=== PATIENT | male | born 1930 | race Caucasian/White ===

== ENCOUNTER 2017-05-22 07:15 | Inpatient (IN) | payer MEDICAID, OTHER ==
--- NOTE | 2017-05-22 07:45 | CPEKG ---
Heart Rate: 92 RR Interval: 652 P-R Interval: 156 QRSD Interval: 110 QT Interval: 396 QTC Interval: 490 P Alanson: 72 QRS Alanson: 78 T Wave Alanson: -27 EKG Severity - ABNORMAL ECG - EKG Impression: SINUS RHYTHM EKG Impression: ATRIAL PREMATURE COMPLEX EKG Impression: INCOMPLETE RIGHT BUNDLE BRANCH BLOCK EKG Impression: LOW VOLTAGE IN FRONTAL LEADS EKG Impression: NONSPECIFIC ST DEPRESSION, ANTERIOR LEADS Electronically Signed By: Sean Rutledge 22-May-2017 07:50:54
[2017-05-22] MEDS ORDERED: PIPERACILLIN/TAZO 4.5 GM/DEX 100 ML IV ONE (07:46)
--- NOTE | 2017-05-22 07:50 | EDPHY ---
H & P Stated Complaint: Left lower leg swelling erythema x 3 days, no trauma, SOB Time Seen by Provider: 05/22/17 07:37 HPI/ROS: CHIEF COMPLAINT: Left leg pain HISTORY OF PRESENT ILLNESS: Patient is an 86-year-old man with a history of recent stenting acrossed an aortic aneurysm to bilateral femoral arteries done by interventional radiology jonathan Cox. He also has a history of COPD and on Friday had skin cancer excision on his right wrist. His daughter is with him and states that ever since he was discharged from the hospital with his blood pressure medication last month he has had bilateral lower extremity edema. Yesterday the left leg became painful as well. Has a red is discharged to his kan and calf. Patient denies chest pain or shortness of breath. He denies abdominal pain. He denies headache or lightheadedness. He has not had a fever. Daughter notes that he did have an elevated troponin while he was in the hospital last month but elected not to have a catheterization. He denies trauma. He saturates in the mid 80s on 4 L at home. REVIEW OF SYSTEMS: Constitutional: denies: chills, fever, recent illness, recent injury EENTM: denies: blurred vision, double vision, nose congestion Respiratory: See HPI Cardiac: denies: chest pain, irregular heart rate, lightheadedness, palpitations Gastrointestinal/Abdominal: denies: abdominal pain, diarrhea, nausea, vomiting, blood streaked stools Genitourinary: denies: dysuria, frequency, hematuria, pain Musculoskeletal: See HPI Skin: See HPI Neurological: denies: headache, numbness, paresthesia, tingling, dizziness, weakness Hematologic/Lymphatic: denies: blood clots, easy bleeding, easy bruising Immunologic/allergic: denies: HIV/AIDS, transplant EXAM: GENERAL: Thin, moderate distress . HEAD: Atraumatic, normocephalic. EYES: Pupils equal round and reactive to light, extraocular movements intact, sclera anicteric, conjunctiva are normal. ENT: TMs normal, nares patent, oropharynx clear without exudates. Moist mucous membranes. NECK: Normal range of motion, supple without lymphadenopathy or JVD. LUNGS: Breath sounds clear to auscultation bilaterally and equal. No wheezes rales or rhonchi. HEART: Regular rate and rhythm without murmurs, rubs or gallops. ABDOMEN: Soft, nontender, normoactive bowel sounds. No guarding, no rebound. No masses appreciated. BACK: No CVA tenderness, no spinal tenderness, step-offs or deformities EXTREMITIES: Bilateral lower extremity edema, 2+ pitting, salmony red discoloration to left kan and calf region. Pulses thready bilaterally. NEUROLOGICAL: Cranial nerves II through XII grossly intact. Normal speech, normal gait. 5/5 strength, normal movement in all extremities, normal sensation PSYCH: Normal mood, normal affect. SKIN: Warm, dry, normal turgor, no visible rashes or lesions. Source: Patient, Family Exam Limitations: No limitations - Personal History Current Tetanus/Diphtheria Vaccine: Unsure Current Tetanus Diphtheria and Acellular Pertussis (TDAP): Unsure - Medical/Surgical History Hx Asthma: No Hx Chronic Respiratory Disease: Yes Hx Diabetes: No Hx Cardiac Disease: Yes Hx Renal Disease: No Hx Cirrhosis: No Hx Alcoholism: No Hx HIV/AIDS: No Hx Splenectomy or Spleen Trauma: No Other PMH: htn, BPH, aortic anneuy repair at [facility] 04/22, COPD - Family History Significant Family History: No pertinent family hx - Social History Smoking Status: Former smoker Alcohol Use: Sober Drug Use: None Constitutional: Initial Vital Signs Temperature (C) 36.9 C 05/22/17 07:20 Heart Rate 95 05/22/17 07:20 Respiratory Rate 18 05/22/17 07:20 Blood Pressure 138/106 H 05/22/17 07:20 O2 Sat (%) 88 L 05/22/17 07:20 O2 Delivery Mode Bi-Pap O2 (L/minute) 15 Allergies/Adverse Reactions: No Known Allergies Allergy (Unverified 05/22/17 07:26) Home Medications: Medication Instructions Recorded Aspirin [Aspirin 81mg (*)] 81 mg PO DAILY 05/22/17 Metoprolol Tartrate [Lopressor 25 25 mg PO BID 05/22/17 mg (*)] Multivitamins [Multivitamin (*)] 1 each PO DAILY 05/22/17 Tamsulosin HCl [Flomax 0.4 MG (*)] 0.4 mg PO HS 05/22/17 amLODIPine BESYLATE [Norvasc 5 mg 5 mg PO BID 05/22/17 (*)] Medical Decision Making - Diagnostics EKG Interpretation: An EKG obtained and was read and documented in trace view. Please see trace view for full reading and report. Sinus rhythm, incomplete right bundle Imaging: Discussed imaging studies w/ manager aviation Radiologist ED Course/Re-evaluation: The patient has septic shock based on an elevated lactate. Likely source is from his wound on his right wrist verses pneumonia versus lower extremity cellulitis. I have started Zosyn and fluid bolus. I will admit to the hospital service. I discussed the case with the [facility] and they agree that he is too ill for transfer currently. Differential Diagnosis: Partial list of the Differential diagnosis considered include but were not limited to; sepsis, pneumonia, cellulitis, venous stasis, ischemia and although unlikely based on the history and physical exam, I also considered aneurysm, acute coronary disease. Critical Care Time: Critical care time spent by me, Dr. Rutledge exclusive with this patient was 35 minutes, exclusive of the PA time exclusive of procedures. The organ system that was at risk was cardiovascular and I gave IV fluids, antibiotics, consultation and admission to prevent worsening of the patient's condition - Data Points Laboratory Results: Laboratory Results 05/22/17 07:55 05/22/17 07:55 Medications Given: Acetaminophen (Tylenol) 650 mg PO Q4HRS PRN PRN Reason: Pain, Mild/Fever, Can Take PO Stop: 11/18/17 09:55 Last Admin: 05/22/17 19:42 Dose: 650 mg Albuterol/Ipratropium (Duoneb) 3 ml IH QID KATE Stop: 11/18/17 11:59 Last Admin: 05/23/17 05:11 Dose: 3 ml Guaifenesin (Mucinex) 1,200 mg PO BID KATE Stop: 11/18/17 20:59 Last Admin: 05/22/17 20:41 Dose: 1,200 mg Sodium Chloride (Ns) 1,000 mls @ 100 mls/hr IV CONT KATE Stop: 11/18/17 09:59 Last Admin: 05/23/17 00:40 Dose: 1,000 mls Piperacillin/Tazobactam/Dextrose (Zosyn (Premix)) 100 mls @ 200 mls/hr IV Q6H KATE PRN Reason: Protocol Stop: 06/21/17 14:59 Last Admin: 05/23/17 02:32 Dose: 100 mls Methylprednisolone Sodium Succinate (Solu-Medrol) 125 mg IVP Q6HRS KATE Stop: 11/18/17 17:59 Last Admin: 05/23/17 05:44 Dose: 125 mg Discontinued Medications Hydromorphone HCl (Dilaudid) 0.5 mg IVP EDNOW ONE Stop: 05/22/17 08:18 Last Admin: 05/22/17 08:19 Dose: 0.5 mg Hydromorphone HCl (Dilaudid) 0.5 mg IVP EDNOW ONE Stop: 05/22/17 09:46 Last Admin: 05/22/17 10:55 Dose: 0.5 mg Piperacillin/Tazobactam/Dextrose (Zosyn (Premix)) 100 mls @ 200 mls/hr IV EDNOW ONE PRN Reason: Protocol Stop: 05/22/17 08:15 Last Admin: 05/22/17 08:59 Dose: 100 mls Sodium Chloride (Ns) 2,200 mls @ 4,400 mls/hr 30 ml/kg infuse over 30 min ( 2200 ml) IV EDNOW ONE PRN Reason: Protocol Stop: 05/22/17 08:59 Last Admin: 05/22/17 09:00 Dose: 2,200 mls Vancomycin HCl 1.25 gm/ (Dextrose) 250 mls @ 166.667 mls/hr IV ONCE ONE Stop: 05/22/17 11:29 Last Admin: 05/22/17 10:23 Dose: 250 mls Departure - Departure Disposition: Home, Routine, Self-Care Clinical Impression: Septic shock Wound infection after surgery Qualifiers: Encounter type: initial encounter Qualified Code(s): T81.4XXA - Infection following a procedure, initial encounter Pneumonia Qualifiers: Pneumonia type: due to unspecified organism Laterality: bilateral Lung location : lower lobe of lung Qualified Code(s): J18.9 - Pneumonia, unspecified organism Condition: Critical
[2017-05-22] MEDS ORDERED: IOPAMIDOL (ISOVUE 370) 100 ML BTL IV ONE (08:10)
[2017-05-22 08:14] LABS: % IMMATURE GRANULYOCYTES 0.3 % (0.0-1.1); ABSOLUTE IMMATURE GRANULOCYTES 0.03 10^3/uL (0.00-0.10); ADD DIFF? NO; ADD MORPH? NO; ADD SCAN? NO; ATYPICAL LYMPHOCYTE FLAG 0 (0-99); FRAGMENT RBC FLAG 0 (0-99); HEMATOCRIT 35.7 % (40.0-51.0); HEMOGLOBIN 12.2 g/dL (13.7-17.5); LEFT SHIFT FLG 60 (0-99); LIPEMIA HEMOLYSIS FLAG 90 (0-99); MEAN CELL HEMOGLOBIN 31.6 pg (27.9-34.1); MEAN CELL HEMOGLOBIN CONCENTR. 34.2 g/dL (32.4-36.7); MEAN CELL VOLUME 92.5 fL (81.5-99.8); PLATELET CLUMPS FLAG 10 (0-99); PLATELET COUNT 201 10^3/uL (150-400); RED BLOOD CELL COUNT 3.86 10^6/uL (4.40-6.38); RED CELL DISTRIBUTION WIDTH 14.4 % (11.5-15.2)
[2017-05-22] MEDS ORDERED: HYDROmorphONE/DILAUDID 1 MG/ML INJ IVP ONE ×2 (08:17→09:45)
[2017-05-22] MEDS ORDERED: HYDROmorphONE/DILAUDID 1 MG/ML INJ ONE (08:17)
[2017-05-22 08:22] LABS: INR 1.1 (0.83-1.16); PROTIME(PATIENT) 14.1 SEC (12.0-15.0)
[2017-05-22 08:23] LABS: APTT 22.4 SEC (23.0-38.0)
[2017-05-22 08:29] LABS: ANION GAP 11 mEq/L (8-16); BILIRUBIN,TOTAL 1.3 mg/dL (0.1-1.4); CALCIUM 8.8 mg/dL (8.5-10.4); CARBON DIOXIDE 20 mEq/l (22-31); CHLORIDE 108 mEq/L (97-110); GLOMERULAR FILTRATION RATE > 60; GLUCOSE 155 mg/dL (70-100); POTASSIUM 4.3 mEq/L (3.5-5.2); SODIUM 139 mEq/L (134-144)
[2017-05-22] MEDS ORDERED: NS 2,200 ML IV ONE (08:30)
[2017-05-22 09:09] LABS: LACGHOST ORDER
[2017-05-22] MEDS ORDERED: IPRATROPIUM/ALBUTEROL 3 ML DEYVIAL ONE (09:10)
[2017-05-22] MEDS ORDERED: ONDANSETRON DISINTEGRATING 4 MG TAB PO PRN (09:56)
[2017-05-22] MEDS ORDERED: LORazepam 2 MG/ML INJ IVP PRN (09:56)
[2017-05-22] MEDS ORDERED: ALBUTEROL 3 ML DEYVIAL IH PRN (09:56)
[2017-05-22] MEDS ORDERED: ACETAMINOPHEN 325 MG TAB PO PRN (09:56)
[2017-05-22] MEDS ORDERED: ONDANSETRON 4 MG/2 ML VIAL IVP PRN (09:56)
[2017-05-22] MEDS ORDERED: HYDROmorphONE/DILAUDID 1 MG/ML INJ IVP PRN (09:56)
[2017-05-22] MEDS: IPRATROPIUM/ALBUTEROL 3 ML DEYVIAL IH SCH ×3 (10:00→20:39)
[2017-05-22] MEDS ORDERED: VANCOMYCIN 1.25 GM in D5W 250 ML IV ONE (10:00)
[2017-05-22 10:25] LABS: TROPONIN I 0.101 ng/mL (0.000-0.034)
--- NOTE | 2017-05-22 11:21 | GHP ---
[f rep st] HISTORY AND PHYSICAL DATE OF ADMISSION: 05/22/2017 CHIEF COMPLAINT: Leg pain. HISTORY OF PRESENT ILLNESS: An 86-year-old male with advanced COPD, oxygen dependent at 4 L, who had recent abdominal aortic aneurysm repair with bilateral stenting of his lower extremities who present s to the emergency department today with complaints of continued lower extremity pain left greater th an right. The patient was released from the hospital approximately 2 weeks ago. Has been seen by [facility] primary care physician in between who performed a skin biopsy on his right forearm for suspected sk in cancer. The patient then returned home and describes to me having increased shortness of breath, subjective fevers and chills, a cough productive of discolored sputum, occasionally with blood. The patient reports whole body pain, but not specifically chest pain, or pleuritic chest pain. Reports t olerating oral intake without nausea or vomiting and denies any recent changes in his stool or urinat ion. The patient is having marked discomfort of the lower extremities which prompted his presentatio n to the emergency department. Per his daughter, he has had increasing lower extremity edema bilater ally since his abdominal aortic aneurysm repair as well as some discoloration of his left lower extre mity that she describes as redness that was not there previously. The patient additionally has had e rythema and discomfort from his biopsy site on his right upper extremity. He currently lives at home with his elderly who is also medically quite ill with aortic stenosis and severe coronary arter y disease. Per the daughter's report, they both have been declining over the course of the last adeel ral weeks. PAST MEDICAL HISTORY: 1. Oxygen-dependent COPD, 4 L. 2. BPH. 3. Hypertension. 4. Vascular disease with recent lower extremity stenting. 5. Aortic aneurysm repair April 2017. 6. Cataracts status post surgery. 7. Elevated troponins at his recent hospitalization. Patient was clear about not wanting any workup for coronary artery disease including stress test or revascularization. SOCIAL HISTORY: Extensive tobacco history, quit in the late 80s. No alcohol or illicit drugs. FAMILY HISTORY: Positive for vascular disease in his mother and father. ADVANCED DIRECTIVES: The patient is do not resuscitate. REVIEW OF SYSTEMS: A 10-point review of systems is negative with the exception of that reported in t he HPI. PHYSICAL EXAMINATION: VITAL SIGNS: Blood pressure 130s/100, heart rates in the 80s to 90s, respirat ory rate 18, saturating 82% on a full face mask at 15 L. Afebrile at 36.9. GENERAL: This is a cach ectic-appearing, elderly male in respiratory distress. HEENT: Notable for dry mucous membranes. Ey e exam is notable for cataract surgery. CARDIAC: Heart sounds are distant. A quiet systolic murmur is appreciated. PULMONARY: Limited respiratory effort with bibasilar rales. GASTROINTESTINAL: Po sitive bowel sounds. Abdomen is quite thin and nontender to palpation. MUSCULOSKELETAL: The patien t has 2+ pitting edema to the knees Which is symmetric. SKIN: Patient has a recent excisional biops y wound on his right forearm which has marked erythema surrounding and appears to be dehiscing in are as. Lower extremity is notable for a blistering most consistent with edema, no clear cellulitis, orlando ed tenderness to palpation. NEUROLOGIC: Patient appears lethargic but is answering questions when p rompted, is oriented x3. PSYCHIATRIC: He seems exhausted on my examination. DATA: White count 9.3, hematocrit is 35.7, hemoglobin of 12.2, platelets of 201, baseline unknown. Lactic acid 4.0, sodium 140, creatinine 1.0, BUN 37, bicarb at 20, blood glucose 155. Chest x-ray, w hich I personally reviewed and interpreted, shows bilateral infiltrates in basilar distribution. EKG , which I personally reviewed and interpreted, shows sinus rhythm, normal access, ST depressions in t he lateral precordial leads. Again, no comparison. Aorta with runoff pending. ASSESSMENT AND PLAN: This is an 86-year-old male, presenting with lower extremity pain and shortness of breath. 1. Acute hypoxic respiratory failure. Patient has known advanced chronic obstructive pulmonary dise ase with baseline oxygen requirements of 4 liters. Daughter describes home saturations in the high 8 0s on 4 liters. He is now requiring full face mask at 15 liters and is saturating in the low 80s. Th e patient is clear about not wanting intubation. Differential for his hypoxia includes acute pneumon ia, either bacterial or viral. possible pulmonary edema from heart, and dysfunction. Pulmonary embol ism is lower on my list but certainly possible with his recent surgery and hospitalization. Will ini tiate broad-spectrum antibiotics. I have ordered bi-level inhaled DuoNeb, as needed albuterol and ad don the patient to the intensive care unit. I have discussed the case with Dr. Buitrago from Pulmonary Critical Care who will follow the patient's progress on noninvasive ventilation. Sending sputum cul tures as well as respiratory viral panel. 2. Sepsis. Patient has a lactate of 4.0 at presentation with severe hypoxic respiratory failure pre sumed secondary to a pulmonary infection. The patient is being treated with fluid resuscitation and empiric intravenous antibiotics. Blood cultures have been obtained and patient will be treated in e intensive care unit. 3. Right upper extremity cellulitis associated with recent skin biopsy. This area looks angry. Conc arianna we may have hematogenous infection related to this. Blood cultures have been sent from the emerg ency department. I am going to empirically start vancomycin until we have blood culture results back . Will continue vancomycin until culture data is available. 4. Lower extremity edema. Certainly concerning for possible heart failure or deep vein thrombosis w ith recent surgery and marked inactivity at home. Have ordered lower extremity ultrasound as well as transthoracic echocardiogram. Will not diurese at this time as the patient appears hypovolemic on m y examination and is receiving initial treatment for sepsis. 5. Vascular disease. The patient is status post an aortic aneurysm repair with bilateral lower extr emity stenting. Aortogram with runoff has been ordered and is pending at this time. Will continue p atbrad's aspirin therapy, await the results of aortic study and treat pain where appropriate. Again, have order lower extremity ultrasound to rule out deep vein thrombosis as a source of his pain as we ll. 6. Benign prostatic hyperplasia. The patient is on tamsulosin, will hold this until this evening pe nding changes in the patient's blood pressures which may be imminent if he is developing full-blown s eptic shock. Have ordered urine studies and culture. 7. Recent troponin excursion with abnormal EKG on admission. Suspect the patient must have underlyi ng cardiac disease. He was clear with the outside hospital that he did not want workup for cardiovas cular disease. We will check a troponin now to simply frame his cardiac picture. Have also ordered a transthoracic echocardiogram for better assessment of his systolic function and how it may be contr ibuting to his acute presentation with hypoxia and lower extremity edema. We will continue patient's aspirin therapy and monitor on telemetry. 8. Prophylaxis. Creatinine is 1.0. Will initiate Lovenox daily. 9. Diet. Clear liquids for now as I am concerned with the patient's respiratory status. DISPOSITION: Greater than 2 midnights as patient is presenting critically ill at the age of 87. Cristopher l need ICU level care. Discussed the case with Dr. Rutledge as well as Dr. Buitrago. Patient will be t riaged to the medical ICU for noninvasive ventilation and treatment for sepsis. /[id number]/MODL
[2017-05-22 11:45] LABS: BASE EXCESS -6.4 mEq/L (-2.5-2.5); BICARBONATE 19 mEq/L (22-26); MEASURED OXYGEN SATURATION 90 % (92-95); PCO2 40 mmHg (34-38); PO2 69 mmHg (65-75); TCO2 20 mEq/L (23-27)
[2017-05-22 11:46] LABS: BIPAP YES; EXP PRESSURE 6; INSP PRESSURE 12; O2 CONCENTRATIION 100 % (0-100); P/F RATIO 69 RATIO
[2017-05-22] MEDS ORDERED: HYDROmorphone HCL/NS/PF 0.4 MG/2 ML SYR IVP PRN (12:14)
--- NOTE | 2017-05-22 13:36 | PDMN ---
Medical Necessity Medical necessity: Patient meets INPT criteria per physician note and MCG M-160 Sepsis and Other Febrile Illness, without Focal Infection (patient w/advanced COPD, O2 dependent on 4LPM O2 and w/recent AAA repair with bilateral stenting of LE's; presents with increasing LE pain, increased shortness of breath w/fever , chills, productive cough; lactate 4.0; sat 85% on 15 LPM per oxymask /patient declines intubation; anticipated LOS > 2 mdnts for IV antibiotics for sepsis, freq nebs, pain control.)
[2017-05-22] MEDS: PIPERACILLIN/TAZO 4.5 GM/DEX 100 ML IV SCH ×2 (15:00→20:42)
[2017-05-22 16:00] LABS: COLOR YELLOW; LEUKOCYTE ESTERASE,URINE NEGATIVE (NEGATIVE); NITRITE,URINE NEGATIVE (NEGATIVE)
--- NOTE | 2017-05-22 16:08 | ECHO ---
[email or web address] [address] [address] Main: [phone] Fax: Transthoracic Echocardiogram Name: RICHARD EM MR#: [id number] Study Date: 05/22/2017 Study Time: 02:59 PM Date of : 1930 Age: 86 year(s) Height: 182.9 cm (72 in.) Weight: 74.84 kg (165 lb.) BSA: 1.96 m2 Gender: Male Examination: Echo Indication: PNA, Hypoxia, LE Edema, Positive Troponins Image Quality: Contrast: Requested by: Krystyna Gómez BP: 142 mmHg/63 mmHg Heart Rate: Rhythm: Indication: PNA, Hypoxia, LE Edema, Positive Troponins Procedure Staff Entrepreneurship Program Director: Kevin Farley Reading Physician: Moises Garcia Requesting Provider: Conclusions: Normal size left ventricle. The ejection fraction is estimated to be 55-60 %. No regional wall motion abnormality. Diastolic dysfunction is present. . The left atrium is mildly dilated. Moderate mitral valve leaflet calcification is present. Trivial mitral valve regurgitation. Mild aortic cusp calcification is noted. Mild tricuspid regurgitation is present. The pulmonary artery pressure is mild to moderately increased. There appears to be a small pleural effusion. Measurements: Chambers Valvular Assessment AV/MV Valvular Assessment TV/PV Normal Normal Normal Name Value Range Name Value Range Name Value Range Ao Kelly (MM): 3.2 cm (2.2 cm-3.7 AV Vmax: 1.37 m/s (1 m/s-1.7 TR Vmax: 3.34 mm/s ( - ) cm) m/s) TR PGmax: 45 mmHg ( - ) IVSd (2D): 0.9 cm (0.6 cm-1.1 AV maxP mmHg ( - ) syst. PAP: 50 mmHg ( - ) cm) LVOT Vmax: 0.71 m/s (0.7 m/s-1.1 PV Vmax: 0.84 m/s (0.6 m/s-0.9 LVDd (2D): 4.8 cm (4.2 cm-5.9 m/s) m/s) cm) MV E Vmax: 1.10 m/s ( - ) PV PGmax: 3 mmHg ( - ) LVDs (2D): 3.4 cm (2.1 cm-4 MV A Vmax: 0.87 m/s ( - ) cm) MV E/A: 1.26 ( - ) LVPWd (2D): 1.2 cm (0.6 cm-1 cm) LVEF (2D): 54 (>=54 %) EF Range: 55-60 % Continued Measurements: Patient: RICHARD EM Study Date: 05/22/2017 Page 1 of 2 02:59 PM Chambers Valvular Assessment AV/MV Valvular Assessment TV/PV Name Value Name Value Name Value LADs Lon.9 cm MV E/E' Septal: 23.00 CVP (est.): 5 mmHg LA Area: 23.7 cm2 MV E/E' Lateral: 19.80 Findings: Left Ventricle: Normal size left ventricle. Low normal left ventricular systolic function. The ejection fraction is estimated to be 55-60 %. No regional wall motion abnormality. Diastolic dysfunction is present. . Right Ventricle: Normal size right ventricle. Normal RV function. Left Atrium: The left atrium is mildly dilated. Right Atrium: The right atrium is normal in size. Mitral Valve: Moderate mitral valve leaflet calcification is present. Trivial mitral valve regurgitation. No mitral stenosis is present. Aortic Valve: Mild aortic cusp calcification is noted. The aortic valve is tri-leaflet. There is no aortic valve regurgitation. Tricuspid Valve: Mild tricuspid regurgitation is present. The pulmonary artery pressure is mild to moderately increased. Pulmonic Valve: The pulmonic valve is normal in appearance and function. Aorta: The aorta is normal. Pericardium: No pericardial effusion. (No Signature Object) Patient: RICHARD EM Study Date: 05/22/2017 Page 2 of 2 02:59 PM [id number]
[2017-05-22 16:37] LABS: AMORPHOUS PRESENT /hpf (NONE-1+)
[2017-05-22 16:41] LABS: WBC,URINE NONE SEEN /hpf (0-3)
[2017-05-22] MEDS: methylPREDNISolone SOD SUCC 125 MG/2 ML VIAL IVP SCH (17:28)
--- NOTE | 2017-05-22 19:29 | GCON ---
[f rep st] CONSULTATION REASON FOR ADMISSION: Acute sepsis, respiratory failure. HISTORY OF PRESENT ILLNESS: The patient is an 86-year-old white male with an extensive past medical history, including chronic obstructive pulmonary disease for which he chronically uses 4 L of oxygen, hypertension, cataracts and benign prostatic hypertrophy. He had recent abdominal aortic aneurysm r epair with bilateral stenting. This was approximately 2 weeks ago. Over the last handful of days he has had increasing lower extremity swelling and pain. He sought medical attention, however, while i n the emergency room he was found to be markedly hypoxemic with increasing respiratory difficulties w ith a low blood pressure. He was subsequently admitted to the intensive care unit. Currently, he is on BiPAP and appears to be resting comfortably. All history is gleaned from the medical record. PAST MEDICAL HISTORY: Again significant for severe chronic obstructive pulmonary disease that is oxy gen dependent. He also has hypertension, benign prostatic hypertrophy and peripheral vascular diseas e. PAST SURGICAL HISTORY: He has had aortic aneurysm repair in April of this year and cataracts remov ed. ALLERGIES: No known allergies to medications. SOCIAL HISTORY: Previous heavy smoker, quit 30 years ago. No significant alcohol use. He is marrie d. He has been the primary care caregiver for his ill . He is do not resuscitate. PHYSICAL EXAMINATION: VITAL SIGNS: Blood pressure is 145/71, pulse 99, respirations 17, temperature is 36.5 and oxygen saturation is 93% on BiPAP. GENERAL: He is a thin somewhat malnourished elderly white male who is resting comfortably on BiPAP. HEENT: Eyes are PERRLA, EOMI. Throat exam is defe rred. NECK: Supple. There is no cervical adenopathy. HEART: Regular rate and rhythm with a 2/6 s ystolic murmur at the left sternal border without radiation. LUNGS: Diminished breath sounds. A fe w bibasilar crackles. There is significant prolongation of the expiratory phase. ABDOMEN: Soft and nontender. Bowel sounds are present in all 4 quadrants. EXTREMITIES: No clubbing, cyanosis or mini ma. LABORATORIES: White count is 9.3, hemoglobin 12, hematocrit 35 and platelet count is 201. INR is 1. 1. Arterial blood gas, pH 7.30, pCO2 of 40, pO2 of 69, bicarbonate 20 and oxygen saturation 98%, thi s is on BiPAP 12/6. Sodium is 139, potassium 3.9, chloride 108, CO2 is 20, BUN is 37, creatinine 1 a nd glucose is 155. Troponins are mildly elevated. Chest x-ray shows bibasilar infiltrates. IMPRESSION: 1. Chronic obstructive pulmonary disease with acute exacerbation. 2. Bibasilar pneumonia. 3. Sepsis. Lactate was elevated at 4. 4. Lower extremity edema and pain. 5. History of vascular disease. 6. Recent aortic aneurysm repair. RECOMMENDATIONS: 1. Agree with BiPAP. 2. Agree with current antibiotic coverage. 3. Sepsis protocol. 4. We will start IV steroids. 5. Echocardiogram. 6. DVT and PE prophylaxis. 7. Stress ulcer prophylaxis. 8. The patient is do not resuscitate. /[id number]/MODL
[2017-05-22] MEDS: guaiFENesin 600 MG TAB.ER PO SCH (20:41)
[2017-05-23] MEDS: methylPREDNISolone SOD SUCC 125 MG/2 ML VIAL IVP SCH ×5 (00:28→23:54)
[2017-05-23] MEDS: NS 1,000 ML IV SCH ×2 (00:40→17:24)
[2017-05-23] MEDS: PIPERACILLIN/TAZO 4.5 GM/DEX 100 ML IV SCH ×4 (02:32→21:20)
[2017-05-23] MEDS: IPRATROPIUM/ALBUTEROL 3 ML DEYVIAL IH SCH ×4 (05:11→19:42)
[2017-05-23 05:20] LABS: % IMMATURE GRANULYOCYTES 0.4 % (0.0-1.1); ABSOLUTE IMMATURE GRANULOCYTES 0.04 10^3/uL (0.00-0.10); ADD DIFF? NO; ADD MORPH? NO; ADD SCAN? YES; ATYPICAL LYMPHOCYTE FLAG 0 (0-99); FRAGMENT RBC FLAG 0 (0-99); HEMATOCRIT 37.5 % (40.0-51.0); HEMOGLOBIN 12.2 g/dL (13.7-17.5); LIPEMIA HEMOLYSIS FLAG 80 (0-99); MEAN CELL HEMOGLOBIN 30.3 pg (27.9-34.1); MEAN CELL HEMOGLOBIN CONCENTR. 32.5 g/dL (32.4-36.7); MEAN CELL VOLUME 93.3 fL (81.5-99.8); MEAN PLATELET VOLUME 10.2 fL (8.7-11.7); PLATELET CLUMPS FLAG 0 (0-99); PLATELET COUNT 132 10^3/uL (150-400); RED BLOOD CELL COUNT 4.02 10^6/uL (4.40-6.38); RED CELL DISTRIBUTION WIDTH 14.6 % (11.5-15.2)
[2017-05-23 05:33] LABS: LEFT SHIFT FLG 300 (0-99)
[2017-05-23 05:38] LABS: ANION GAP 11 mEq/L (8-16); CALCIUM 8.2 mg/dL (8.5-10.4); CARBON DIOXIDE 20 mEq/l (22-31); CHLORIDE 107 mEq/L (97-110); CREATININE 1.1 mg/dL (0.7-1.3); GLOMERULAR FILTRATION RATE > 60; GLUCOSE 205 mg/dL (70-100); POTASSIUM 4.1 mEq/L (3.5-5.2); SODIUM 138 mEq/L (134-144)
[2017-05-23 05:57] LABS: SCAN POSITIVE
[2017-05-23 06:04] LABS: PLATELET ESTIMATE DECREASED (ADEQ)
--- NOTE | 2017-05-23 08:43 | HOSPPROG ---
Hospitalist Progress Note Assessment/Plan: #Acute on chronic hypoxic resp failure: multifactorial with PNA, COPD exacerbation and volume overload. Dose Lasix now #Decompensated diastolic HR: EF 55%. IV lasix #Acute encephalopathy: worse this evening. Stat ABG, CTH #Concern for critical left lower limb ischemia: -s/p abdominal aortic aneurysm. Reviewed CTA with surgery and anterior tibial is only vessel that is minimally viable -heparin gtt #Sepsis: wrist, leg cellulitis #Right wrist cellulitis: cont IV vancomycin #Lactic acidosis: resolved #Bibasilar PNA: cont vanc and zosyn. Viral PCR and blood cultures negative. Add procalcitonin #COPD exacerbation: cont IV steroids, nebs #Goals: I had lengthy conversation with his daughter Niki (BRUNA) since not decisional at this point. He is DNR, but she states to intubate at this time to allow for recovery. If prolonged intubation, then family would make that decision. Critical care time spent: 180 min reviewing data, d/w Dr. Gauthier, coordinating care with [facility] and several discussions with daughter Subjective: SOB Objective: Vital Signs Temp Pulse Resp BP Pulse Ox 37.2 C 109 H 20 155/72 H 93 05/23/17 07:50 05/23/17 07:50 05/23/17 07:50 05/23/17 07:50 05/23/17 07:50 Microbiology 05/22/17 10:55 Respiratory Panel (PCR) - Final Nasal, Sinus - Swab No Organism Detected Laboratory Results 05/23/17 05:06 05/23/17 05:06 05/22/17 05/23/17 05/24/17 05:59 05:59 05:59 Intake Total 6002 Output Total 500 250 Balance 5502 -250 PT 14.1 SEC (12.0-15.0) 05/22/17 07:55 INR 1.10 (0.83-1.16) 05/22/17 07:55 - Physical Exam Constitutional: chronically ill appearing Eyes: PERRL Cardiovascular: regular rate and rhythym, JVD (to mandible), edema (+3 LE edema) Respiratory: reduced air movement, rhonchi Gastrointestinal: normoactive bowel sounds Genitourinary: no bladder fullness Musculoskeletal: other (right wrist with minimal erythema. LLE wrapped with curlex. Significant pain when palpating. Erythmatous. He did not tolerate futher eval due to pain) Neurologic: AAOx3 Psychiatric: flat affect ICD10 Worksheet Patient Problems: Problems Problem Status Onset Pneumonia Acute Septic shock Acute Wound infection after surgery Acute
[2017-05-23] MEDS: ASPIRIN 81 MG CHEWABLE TAB PO SCH (08:51)
[2017-05-23] MEDS: guaiFENesin 600 MG TAB.ER PO SCH ×2 (08:51→21:21)
[2017-05-23] MEDS ORDERED: ENOXAPARIN 40 MG/0.4 ML SYR SC SCH (09:00)
--- NOTE | 2017-05-23 09:13 | PDINTPN ---
Party Plan Sales Director Progress Note Assessment/Plan: Assessment/Plan: * Chronic obstructive pulmonary disease with acute exacerbation -continue steroids and nebulized treatments * Bibasilar pneumonia-continue current antibiotics * Respiratory-oxygen requirements have improved. Patient is less breathless. -wean FiO2 as tolerated * Sepsis-resolved * Lower extremity pain and swelling with apparent cellulitis of left leg * Recent aortic aneurysm repair * Peripheral vascular disease * Patient is do not resuscitate * Disposition-okay for transfer to floor Subjective: Sitting up in bed. Less breathless. More awake and alert. Pain is improved Objective: Vital Signs Temp Pulse Resp BP Pulse Ox 37.2 C 109 H 20 155/72 H 93 05/23/17 07:50 05/23/17 07:50 05/23/17 07:50 05/23/17 07:50 05/23/17 07:50 Microbiology 05/22/17 10:55 Respiratory Panel (PCR) - Final Nasal, Sinus - Swab No Organism Detected Laboratory Results 05/23/17 05:06 05/23/17 05:06 05/22/17 05/23/17 05/24/17 05:59 05:59 05:59 Intake Total 6002 Output Total 500 250 Balance 5502 -250 PT 14.1 SEC (12.0-15.0) 05/22/17 07:55 INR 1.10 (0.83-1.16) 05/22/17 07:55 Physical Exam - Physical Exam General Appearance: alert, no apparent distress EENT: PERRL/EOMI Neck: non-tender, supple Respiratory: crackles (Bibasilar), prolonged expiration, No respiratory distress , No accessory muscle use, No wheezing Cardiac/Chest: normal peripheral pulses, regular rate, rhythm, systolic murmur Abdomen: normal bowel sounds Male Genitalia: deferred Rectal: deferred Skin: normal color, warm/dry Extremities: other (Left leg bandaged) Neuro/Psych: alert, normal mood/affect ICD10 Worksheet Patient Problems: Problems Problem Status Onset Pneumonia Acute Septic shock Acute Wound infection after surgery Acute
[2017-05-23] MEDS: VANCOMYCIN 1.25 GM in D5W 250 ML IV SCH (09:33)
--- NOTE | 2017-05-23 15:58 | WOCRNPDOC ---
NELY Advanced Assessment Note - Skin Integrity Problem, Advanced Assess Right Arm Surgical Wound/Incision Dressing Type: Gauze Dressing Description: Shadowed Closure Description: Sutures (running suture at both ends) Exudate Amount: Minimal Exudate Color: Reddish/Yellow Exudate Characteristic(s): Serosanguinous Integumentary Issue Intervention: Dressing Applied Romy Wound Tissue: Intact, Thin, Dry Romy Wound Swelling: None Wound Bed Color: [place], Red Wound Bed Constitution: Granulation Tissue, Red/Tenstrike - Non Granular Tissue Wound Edges: Epithelizing Site Odor: None Site Odor Comment: 3.2cmx1.2cmx0.3cm Skin Integrity Problem Comment: 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 Wound is comprised of both granulation and smooth, non-granulating tissues, no necrosis. There is no periwound erythema or swelling observed. Will continue dressing changes using Hydrofera Blue and secondary dressing. Coccyx Pressure Injury Dressing Type: Open to Air Exudate Amount: None Exudate Characteristic(s): None Romy Wound Tissue: Blanching, Erythema Site Measurement - Head-to-Toe Length X Width X Depth (cm): R of coccyx: [id number]. L of coccyx: [id number] Pressure Injury Stage: Stage 1 Pressure Injury Present on Admit: Yes (documented by nursing) Skin Integrity Problem Comment: Two discrete, non-blanching areas noted to the right and left of patient's coccyx, consistent w/ stage 1 pressure injuries. Erythema throughout periwound area, currently blanching but fragile in appearance. Will have nursing apply dimethicone cream BID to protect skin. Pressure-relieving interventions initiated, including TAPS, turns q2, and accu- max w/ pump. Left Lower Leg Dressing Type: Abdominal Pads, Aubree Dressing Description: Intact Exudate Amount: Scant Exudate Color: Reddish/Yellow Exudate Characteristic(s): Serosanguinous Integumentary Issue Intervention: Visualized Under Dressing Romy Wound Tissue: Ecchymotic, Erythema, Swollen, Painful/Tender Romy Wound Swelling: Moderate Wound Bed Constitution: Draining Sangenous Blister (serosanguinous) Skin Integrity Problem Comment: Large, dark purple bullae noted to lateral/ posterior aspect of LLE, presently leaking scant serosanguinous fluid out of distal aspect. Color of bullae characteristic of hematoma, though the fluctuance feels more thin and serous. Skin in both lower extremities is shiny and taut, consisent w/ PVD. Requested surgical consult to evaluate. Presently, wound care does not need to follow, as there is no wound. Left leg elevated on pillow, and site re-wrapped to protect wound and manage any subsequent drainage.
--- NOTE | 2017-05-23 16:39 | ASMTCMCOM ---
CM Note CM Note Notes: Pt admitted with respiratory failure, sepsis, PNA. Transferred to 3E from ICU. PT/OT recommending SNF d/c. Pt has [employer] Medicare. CM to follow for d/c needs. Date Signed: 05/23/2017 04:39 PM Electronically Signed By:MARQUISE Osorio
[2017-05-23] MEDS ORDERED: HEPARIN 10,000 UNIT/10 ML MDV IVP PRN (17:16)
[2017-05-23] MEDS ORDERED: HEPARIN 10,000 UNIT/10 ML MDV IVP ONE (17:16)
[2017-05-23] MEDS ORDERED: HEPARIN/DEXTROSE 500 ML IV SCH (17:30)
--- NOTE | 2017-05-23 17:48 | PDCONSULT ---
Rolling Mill Operator Helper Note: General Surgery Consult Dr. Souza requested a surgical consult this afternoon for Mr. Webb due to severe lower extremity pain and LLE swelling He is 2 weeks s/p endovascular AAA repair at [facility] with a bifurcated stent graft (hospital records/op notes not available for review) He was discharged home and presented to [facility] yesterday morning for evaluation of lower extremity pain and dyspnea. He underwent CTA yesterday morning and was admitted to the ICU for medical management and was transferred to [facility]-surg earlier today. He is quite hard of hearing, but is able to answer simple questions. 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 years PE: T 36.9 P 90 R 18 BP 138/106 Frail appearing elderly male in moderate distress Abd: soft/non-tender, audible bruit right femoral puncture site uncomplicated Ext: swelling and reddish discoloration LLE with posterior calf bullae markedly delayed cap refill L foot, +4 edema, pain to palpation Pulses: Femoral R +2 L +1 Popliteal R +1 L CORE STACKER DP R CORE STACKER L CORE STACKER ( R audible by Doppler L no audible signal) PT R CORE STACKER L CORE STACKER ( R audible by Doppler L no audible signal) CTA reviewed: large infra-renal AAA with well positioned stent graft/without endoleak runoff shows occluded PT and peroneal on the left with a high grade stenosis of the anterior tibial proximally extensive calcifications throughout remaining vessels Imp: LLE ischemia with rest pain/limb threat scenario multiple medical problems with hypoxemia Rec: I recommended transfer to [facility] for vascular intervention he will require ALS transport or helicopter Heparin drip has been initiated. Stenting of this lesion may be possible, but is risky and a vascular surgeon should be involved in his care as soon as he arrives to the receiving facility. Ilan Gauthier MD, FACS
[2017-05-23 17:57] LABS: ADD MORPH? NO; ATYPICAL LYMPHOCYTE FLAG 0 (0-99); FRAGMENT RBC FLAG 0 (0-99); HEMATOCRIT 32.2 % (40.0-51.0); HEMOGLOBIN 11.3 g/dL (13.7-17.5); LIPEMIA HEMOLYSIS FLAG 90 (0-99); MEAN CELL HEMOGLOBIN 31.7 pg (27.9-34.1); MEAN CELL HEMOGLOBIN CONCENTR. 35.1 g/dL (32.4-36.7); MEAN CELL VOLUME 90.2 fL (81.5-99.8); MEAN PLATELET VOLUME 10.7 fL (8.7-11.7); PLATELET CLUMPS FLAG 0 (0-99); PLATELET COUNT 129 10^3/uL (150-400); RED BLOOD CELL COUNT 3.57 10^6/uL (4.40-6.38); RED CELL DISTRIBUTION WIDTH 14.7 % (11.5-15.2)
[2017-05-23 17:59] LABS: INR 1.57 (0.83-1.16); PROTIME(PATIENT) 18.8 SEC (12.0-15.0)
[2017-05-23 18:00] LABS: APTT 32.4 SEC (23.0-38.0)
[2017-05-23 18:01] LABS: ADD DIFF? YES; ADD SCAN? NO; LEFT SHIFT FLG 300 (0-99)
--- NOTE | 2017-05-23 18:11 | ASMTCMCOM ---
CM Note CM Note Notes: EMTALA transfer started this evening. Dr Souza contacting [facility] for direct admit. Made all copies and informed staff of need for ALS ambulance transport if pt accepted. silk opener informed of need for MD to MD report as well as RN to RN report. If pt accepted by [facility], they will provide those numbers. Daughter is Niki Webb [phone]; she would like to be kept informed. Pt's [facility] vascular surgeon is Abraham Covarrubias [phone]. General [facility] # provided by dtr is [phone]. Date Signed: 05/23/2017 06:11 PM Electronically Signed By:MARQUISE Osorio
[2017-05-23 18:37] LABS: PLATELET ESTIMATE DECREASED (ADEQ)
[2017-05-23 19:44] LABS: BASE EXCESS -4.6 mEq/L (-2.5-2.5); BICARBONATE 19 mEq/L (22-26); MEASURED OXYGEN SATURATION 87 % (92-95); PCO2 31 mmHg (34-38); PO2 54 mmHg (65-75); TCO2 20 mEq/L (23-27)
[2017-05-23] MEDS ORDERED: FUROSEMIDE 20 MG/2 ML VIAL ONE (20:19)
[2017-05-23] MEDS ORDERED: FUROSEMIDE 40 MG/4 ML VIAL IVP ONE (21:15)
--- NOTE | 2017-05-23 21:15 | GDS ---
[f rep st] DISCHARGE SUMMARY DISCHARGE DIAGNOSES: 1. Acute on chronic hypoxic respiratory failure. 2. Chronic obstructive pulmonary disease exacerbation. 3. Bilateral pneumonia. 4. Concern for critical limb ischemia. 5. History of abdominal aortic aneurysm, status post bilateral lower extremity stenting 2 weeks ago at [facility]. 6. Right wrist, left leg cellulitis. 7. Acute encephalopathy. 8. Decompensated diastolic heart failure. 9. Severe sepsis. 10. Lactic acidosis. 11. Chronic hypoxemic respiratory failure, on 4 L. 12. Benign prostatic hypertrophy. 13. Hypertension. 14. Cataract surgery. HISTORY OF PRESENT ILLNESS: An 86-year-old male with multiple medical problems , including COPD, peripheral vascular disease, who underwent abdominal aortic aneurysm repair 2 weeks ago with stenting to bilateral lower extremities, who presents here with leg pain and shortness of breath. He was released from [facility] 2 weeks ago after surgery, and was seen by his primary care physician, who performed a skin biopsy on his right forearm for suspected skin cancer. He then went home and began having increased shortness of breath, subjective fevers and chills, and a productive cough of discolored sputum with occasional blood. He reports whole-body pain, but none in his chest. He is having marked discomfort in his lower extremities. Per his daughter, he has had increased edema bilaterally since the repair, and some discoloration of the left lower extremity of the left leg that he describes as redness. He also had redness over the right wrist at the site of his biopsy. He currently lives at home with his elderly . HOSPITAL COURSE: 1. Acute on chronic hypoxic respiratory failure: multifactorial with COPD exacerbation,bibasilar pneumonia. Treat with broad-abx with recent hospitalization. IV Solu-Medrol and DuoNeb. Increased oxygen needs this evening due to volume overload, gice IV Lasix. 2. Concern for left leg critical limb ischemia: known severe PVD with recent abdominal aortic aneurysm repair, BL LE stenting. I reviewed the CTA with Dr. Gauthier and states there is only perfusion from the anterior tibial. Start heparin gtt and arrange for transfer to [facility] to his surgeons. Heparin drip. 3. Severe sepsis: multifactorial, with cellulitis and pneumonia. IV Vanc and Zosyn. 4. Lactic acidosis: secondary to sepsis. 5. Acute encephalopathy: likely multifactorial given critical illness, pneumonia, COPD exacerbation. Recent ABG shows pCO2 of 30. Head CT was performed and read is pending. 6. Decompensated diastolic heart failure: echo showed EF of 55- 60% and diastolic dysfunction, Trivial MR. Mild TR. Small pleural effusion. Continue diuresis. 7. Deep vein thrombosis prophylaxis: The patient on heparin drip. 8. Goals: spoke with Niki (daughter and MDPOA). He has DNR directive, however she will allow intubation now if needed for surgery. He would not want prolonged intubation. 9. Code status: limited, intubation okay DISPOSITION: Accepting physician at [facility] is Dr. Beatrice Gutierrez with the medical team, and to be evaluated by Vascular Surgery. /[id number]/MODL MTDD
--- NOTE | 2017-05-23 21:48 | HOSPPROG ---
Hospitalist Progress Note Assessment/Plan: Pt seen and examined He was in resp failure and given 40mg of IV lasix Breathing rate and effort have improved BNP elevated CXR reviewed BP is stable He is now more alert Repeat LE dopplers is positive for pulses (PT's, DP's bilaterally) O: VSS Gen: NAD Awake RRR, some tachy Decrease breath sounds s/nt/nd +LE edema CXR: acute vascular congestion, edema 1)Resp failure 2)Volume overload 3)ischemic limb 4)encephalopathy Plan: -May need additional Lasix tonight vs early tomorrow, will order tomorrow -He is ok to stay her tonight, this was d/w the [place] physician -He still needs vascular surgery consult, and this needs to be arranged tomorrow morning -Cont AC -insert hathaway -Await CT brain, although no focal deficits and improving mentation total additional CCT is 40 minutes Objective: Vital Signs Temp Pulse Resp BP Pulse Ox 37.6 C 109 H 29 H 154/63 H 93 05/23/17 20:10 05/23/17 20:10 05/23/17 20:10 05/23/17 20:10 05/23/17 20:10 Microbiology 05/22/17 10:55 Respiratory Panel (PCR) - Final Nasal, Sinus - Swab No Organism Detected Laboratory Results 05/23/17 17:35 05/23/17 05:06 05/22/17 05/23/17 05/24/17 05:59 05:59 05:59 Intake Total 6002 460 Output Total 500 550 Balance 5502 -90 PT 18.8 SEC (12.0-15.0) H 05/23/17 17:35 INR 1.57 (0.83-1.16) H 05/23/17 17:35 - Time Spent With Patient Time Spent with Patient: greater than 35 minutes Time Spent with Patient: Greater than 35 minutes spent on this patients care, greater than 50% of time spent counseling, educating, and coordinating care regarding the above mentioned plan. ICD10 Worksheet Patient Problems: Problems Problem Status Onset Pneumonia Acute Septic shock Acute Wound infection after surgery Acute
[2017-05-24] MEDS: PIPERACILLIN/TAZO 4.5 GM/DEX 100 ML IV SCH ×2 (03:10→09:19)
[2017-05-24] MEDS: IPRATROPIUM/ALBUTEROL 3 ML DEYVIAL IH SCH ×4 (05:11→22:21)
[2017-05-24] MEDS: methylPREDNISolone SOD SUCC 125 MG/2 ML VIAL IVP SCH (05:52)
[2017-05-24] MEDS ORDERED: FUROSEMIDE 40 MG/4 ML VIAL IVP ONE (06:00)
[2017-05-24 07:46] LABS: ANION GAP 11 mEq/L (8-16); CALCIUM 8.3 mg/dL (8.5-10.4); CARBON DIOXIDE 22 mEq/l (22-31); CHLORIDE 107 mEq/L (97-110); CREATININE 1.6 mg/dL (0.7-1.3); GLOMERULAR FILTRATION RATE 41; GLUCOSE 247 mg/dL (70-100); SODIUM 140 mEq/L (134-144)
--- NOTE | 2017-05-24 07:51 | PDCONSULT ---
Network Security Engineer Note: Mr. Webb is now in the ICU and remains somnolent/weak requiring 15 lpm O2 His left foot remains cool with delayed cap refill. DP now audible by Doppler. Swelling is down Imp: LLE limb threat with high grade stenosis AT artery/occlusion PT and peroneal (embolic vs atherosclerotic) clinically improved post anticoagulation Rec: Transfer to [facility] for appropriate management by his vascular team Ilan Gauthier MD, FACS
[2017-05-24] MEDS ORDERED: FUROSEMIDE 40 MG/4 ML VIAL IVP SCH (09:00)
--- NOTE | 2017-05-24 09:13 | PDINTPN ---
Merchandise Flow Team Leader Progress Note Assessment/Plan: Assessment/Plan: * Chronic obstructive pulmonary disease with acute exacerbation -continue steroids and nebulized treatments * Bibasilar pneumonia-continue current antibiotics * Respiratory-oxygen requirements still high. -wean FiO2 as tolerated * Sepsis-resolved * Lower extremity ischemia-status post abdominal aortic aneurysm head bilateral lower extremity stenting 2 weeks ago at [facility] * Recent aortic aneurysm repair * Peripheral vascular disease * Patient is do not resuscitate * Disposition-the requires transfer back to [facility] for further care Subjective: Resting comfortably. Mildly dyspneic. Still on high-flow oxygen. Objective: Vital Signs Temp Pulse Resp BP Pulse Ox 37.7 C 122 H 25 H 133/55 H 92 05/24/17 08:00 05/24/17 08:00 05/24/17 08:00 05/24/17 08:00 05/24/17 08:00 Laboratory Results 05/23/17 17:35 05/24/17 05:55 05/23/17 05/24/17 05/25/17 05:59 05:59 05:59 Intake Total 6002 1059 Output Total 500 1200 Balance 5502 -141 PT 18.8 SEC (12.0-15.0) H 05/23/17 17:35 INR 1.57 (0.83-1.16) H 05/23/17 17:35 Physical Exam - Physical Exam General Appearance: alert, no apparent distress EENT: PERRL/EOMI Neck: non-tender, supple Respiratory: respiratory distress (Mild), crackles (Scattered), No wheezing Cardiac/Chest: normal peripheral pulses, regular rate, rhythm, systolic murmur Abdomen: normal bowel sounds, non-tender, soft Male Genitalia: deferred Rectal: deferred Neuro/Psych: alert ICD10 Worksheet Patient Problems: Problems Problem Status Onset Pneumonia Acute Septic shock Acute Wound infection after surgery Acute
[2017-05-24] MEDS: VANCOMYCIN 1.25 GM in D5W 250 ML IV SCH (09:19)
--- NOTE | 2017-05-24 09:38 | HOSPPROG ---
Hospitalist Progress Note Assessment/Plan: 86 yo M w PVD, recent AAA repair w endograft here w foot pain, hypoxemic resp failure. Acute on chronic hypoxic resp failure: multifactorial with PNA, COPD exacerbation and volume overload. cont vanc zosyn for nosocomial pneumonia has been diuresed for pulm edema, cxr not much improved (interp by me), but cr has increased Decompensated diastolic HR: EF 55%. IV lasix Acute encephalopathy: worse this evening. Stat ABG, CTH alert this AM non con head CT w no acute findings 2/2 acute medical illness Concern for critical left lower limb ischemia: s/p abdominal aortic aneurysm. Reviewed CTA with surgery and anterior tibial is only vessel that is minimally viable heparin gtt exam improved but needs care of vascular surgeon Sepsis: wrist, leg cellulitis Right wrist cellulitis: cont IV vancomycin Lactic acidosis: resolved Bibasilar PNA: cont vanc and zosyn. Viral PCR and blood cultures negative. PCT high COPD exacerbation: cont IV steroids, nebs #Goals: Dr Souza had lengthy conversation with his daughter Niki (MDPOA) since not decisional at this point. He is DNR, but she states to intubate at this time to allow for recovery. If prolonged intubation, then family would make that decision. dispo: pursuing transfer to [facility] today Subjective: case d/w dr wood, patient's daughter Objective: Vital Signs Temp Pulse Resp BP Pulse Ox 37.7 C 125 H 25 H 125/55 H 92 05/24/17 08:00 05/24/17 09:00 05/24/17 09:00 05/24/17 09:00 05/24/17 09:00 Laboratory Results 05/23/17 17:35 05/24/17 05:55 05/23/17 05/24/17 05/25/17 05:59 05:59 05:59 Intake Total 6002 1059 Output Total 500 1200 Balance 5502 -141 PT 18.8 SEC (12.0-15.0) H 05/23/17 17:35 INR 1.57 (0.83-1.16) H 05/23/17 17:35 - Physical Exam Constitutional: chronically ill appearing, other (alert, tachypneic) Eyes: PERRL, anicteric sclera Ears, Nose, Mouth, Throat: hearing normal, No moist mucous membranes Cardiovascular: tachycardia, No systolic murmur Respiratory: no respiratory distress, other (diffuse rhonchi) Gastrointestinal: normoactive bowel sounds, soft, non-tender abdomen Genitourinary: hathaway in urethra, No no bladder fullness Skin: warm, normal color Musculoskeletal: full muscle strength, other (LLE warm, w decreased sensation. pulse not palpable. toes warm. R is same. per notes, exam is improved) Neurologic: AAOx3, No sensation intact bilaterally Psychiatric: interacting appropriately ICD10 Worksheet Patient Problems: Problems Problem Status Onset Pneumonia Acute Septic shock Acute Wound infection after surgery Acute
[2017-05-24] MEDS: guaiFENesin 600 MG TAB.ER PO SCH ×2 (10:26→22:05)
[2017-05-24] MEDS: ASPIRIN 81 MG CHEWABLE TAB PO SCH (10:26)
[2017-05-24] MEDS ORDERED: SCOPOLAMINE HYDROBROMIDE 1 MG/3 DAYS PATCH TD PRN (18:15)
[2017-05-24] MEDS ORDERED: morphINE 10 MG/0.5 ML UDSYR PO PRN (18:15)
[2017-05-24] MEDS ORDERED: LORazepam 2 MG/ML INJ IVP PRN (18:15)
[2017-05-24] MEDS ORDERED: PROMETHAZINE HCL 25 MG/ML INJ IVP PRN (18:15)
--- NOTE | 2017-05-24 19:12 | ASMTCMCOM ---
CM Note CM Note Notes: Call received from Dr. Aguilera. Pt to transfer to [facility] early this morning. Call placed to [facility] line to coordinate discharge. Dr. Francisco on the line for Dr. Willy Rosales MD to MD report completed. Pt transfer accepted and confirmed. All records copied; imaging CD obtained; [facility] transport form completed; EMTALA completed. [facility] arranged ALS ground transport w/ [facility] to arrive by 11:50. Dr. Aguilera to bedside to update pt and family. Pt refused transfer stating that he just wanted to go to "sleep." Dr. Aguilera discussed risks vs benefits of transfer. Pt cont to refuse; wishing to stay at [facility] on comfort measures only. Call placed to [facility] to cancel transfer; spoke w/ [place]. Transfer canceled per Dr. Aguilera, pt and family request. Attempted to reach [facility] to cancel transport w/o success. [facility] to ICU. CLAUDINE Patel clarified w/ pt one more time regarding transfer; pt refused. [facility] updated. All copied records placed in envelope in pt's chart. Discharge needs and plan remain TBD at this time. Pt may need Palliative care consult on Friday. CM will cont to follow. Current Discharge Plan: TBD Date Signed: 05/24/2017 07:12 PM Electronically Signed By:Tequila Quintana RN
[2017-05-25] MEDS: IPRATROPIUM/ALBUTEROL 3 ML DEYVIAL IH SCH (05:28)
[2017-05-25 06:30] VITALS: BP 144/72; TEMP 98.6
[2017-05-25 07:38] VITALS: PULSE 132; RESP 18; O2SAT 86
--- NOTE | 2017-05-25 07:41 | PDCONSULT ---
Supervisor Webbing Note: Mr. Webb has opted for comfort care only. I confirmed this with him and he appears cognizant, though mildly sedated. His LLE remains cool and swollen without palpable pulses Imp: s/p endovascular repair of AAA with bifurcated graft and distal embolic vs. occlusive disease LLE. LLE ischemic rest pain/early signs of tissue necrosis multiple medical problems and failure to thrive in a patient requesting comfort care only Rec: continue comfort care/?transfer to inpatient Hospice I will sign off, please reconsult surgery as needed. Ilan Gauthier MD, FACS
[2017-05-25] MEDS: guaiFENesin 600 MG TAB.ER PO SCH (08:43)
--- NOTE | 2017-05-25 09:37 | HOSPPROG ---
Hospitalist Progress Note Assessment/Plan: 86 yo M w PVD, recent AAA repair w endograft here w foot pain, hypoxemic resp failure. patient is now comfort care and actively dying expect him to in next 24 hours DNR extensive conversations w family Subjective: case d/w dr wood. comfort care. minimally responsive, tachypneic and tachycardic Objective: Vital Signs Temp Pulse Resp BP Pulse Ox 37.0 C 132 H 18 144/72 H 86 L 05/25/17 06:00 05/25/17 07:36 05/25/17 07:36 05/25/17 06:00 05/25/17 07:36 Laboratory Results 05/23/17 17:35 05/24/17 05:55 05/24/17 05/25/17 05/26/17 05:59 05:59 05:59 Intake Total 1059 100 Output Total 1200 1200 Balance -141 -1100 PT 18.8 SEC (12.0-15.0) H 05/23/17 17:35 INR 1.57 (0.83-1.16) H 05/23/17 17:35 - Physical Exam Constitutional: no apparent distress, chronically ill appearing, No appears nourished Eyes: PERRL Ears, Nose, Mouth, Throat: No moist mucous membranes Cardiovascular: tachycardia, No systolic murmur Respiratory: other (tachypnea, shallow respirations) Gastrointestinal: normoactive bowel sounds, soft, non-tender abdomen Genitourinary: no bladder fullness, No hathaway in urethra Skin: warm, normal color Musculoskeletal: No full muscle strength Neurologic: No AAOx3 Psychiatric: No interacting appropriately Lymph, Heme, Immunologic: no cervical LAD ICD10 Worksheet Patient Problems: Problems Problem Status Onset Pneumonia Acute Septic shock Acute Wound infection after surgery Acute
--- NOTE | 2017-05-25 13:45 | ASDISCHSUM ---
Discharge Information Plan Status: Medically Cleared to Leave: Discharge Date:05/25/2017 10:07 AM CM D/C Disposition: ADT D/C Disposition: Projected Discharge Date:05/25/2017 10:07 AM Transportation at D/C: Discharge Delay Reason: Follow-Up Date:05/25/2017 10:07 AM Discharge Slot: Final Diagnosis:PVD w/recent AAA repair, foot pain, Respiratory failure Placement Information Patient Contact Information Contact Name:ELI Relationship: Address:[address] Work Phone: City:[place] Alternate Phone: [facility] Code:[place] [address] Email: Financial Information Financial Class:Medicare Advantage Plans Primary Plan Desc:[employer] G[place] IP Primary Plan Number:[id number] Secondary Plan Desc: Secondary Plan Number: Assessment Information LACE LACE Acuity / Level of Care Answers: Was the patient admitted to hospital via the emergency department? Yes: Comorbidities - select Answers: Peripheral vascular all that apply disease Chronic pulmonary disease Emergency dept visits in Answers: 1 last 6 months Score: 7 Date Signed: 05/22/2017 09:34 AM Electronically Signed By:Dang Arciniega RN [facility] Progress Note CM Note CM Note Notes: Pt admitted with respiratory failure, sepsis, PNA. Transferred to from ICU. PT/OT recommending SNF d/c. Pt has [employer]. CM to follow for d/c needs. Date Signed: 05/23/2017 04:39 PM Electronically Signed By:MARQUISE Osorio [facility] CM Progress Note CM Note CM Note Notes: EMTALA transfer started this evening. Dr Souza contacting [facility] for direct admit. Made all copies and informed staff of need for ALS ambulance transport if pt accepted. oceanography professor informed of need for MD to MD report as well as RN to RN report. If pt accepted by [facility], they will provide those numbers. Daughter is Niki Webb [phone]; she would like to be kept informed. Pt's [facility] vascular surgeon is Abraham Covarrubias [phone]. General [facility] # provided by dtr is [phone]. Date Signed: 05/23/2017 06:11 PM Electronically Signed By:MARQUISE Osorio [facility] CM Progress Note CM Note CM Note Notes: Call received from Dr. Aguilera. Pt to transfer to [facility] early this morning. Call placed to [facility] line to coordinate discharge. Dr. Francisco on the line for Dr. Willy Rosales MD to report completed. Pt transfer accepted and confirmed. All records copied; imaging CD obtained; [facility] transport form completed; EMTALA completed. [facility] arranged ALS ground transport w/ [facility] to arrive by 11:50. Dr. Aguilera to bedside to update pt and family. Pt refused transfer stating that he just wanted to go to "sleep." Dr. Aguilera discussed risks vs benefits of transfer. Pt cont to refuse; wishing to stay at [facility] on comfort measures only. Call placed to [facility] to cancel transfer; spoke w/ [place]. Transfer canceled per Dr. Aguilera, pt and family request. Attempted to reach [facility] to cancel transport w/o success. [facility] to ICU. CLAUDINE Patel clarified w/ pt one more time regarding transfer; pt refused. [facility] updated. All copied records placed in envelope in pt's chart. Discharge needs and plan remain TBD at this time. Pt may need Palliative care consult on Friday. CM will cont to follow. Current Discharge Plan: TBD Date Signed: 05/24/2017 07:12 PM Electronically Signed By:Tequila Quintana RN Case Management Discharge Plan Note Case Management Discharge Discharge Order Complete? Answers: Yes Family Notified Answers: Yes Notes: Patient Discharge Comments Notes: Patient Date Signed: 05/25/2017 12:15 PM Electronically Signed By:Olivia Proctor LCSW Intervention Information
--- NOTE | 2017-05-25 16:43 | GDS ---
[f rep st] DISCHARGE SUMMARY DISCHARGE DIAGNOSES: 1. Peripheral vascular disease. 2. Pneumonia. 3. Comfort care. 4. Respiratory failure. Please see admission history and physical by Dr. Toshia Souza. The patient had a recent Interventi on Radiology abdominal aortic aneurysm repair. He presented to [facility] with a col d ischemic left foot. Angiogram runoff revealed that it is being fed by 1 peroneal vessel with occlu sions of other arteries. It also showed diffuse peripheral vascular disease. The patient was recomm ended to transfer back to [facility] and this was arranged. On the day of discharge, th e patient declined transfer, saying he was not interested in further intervention, was ready to pass away. The patient also had concomitant pneumonia and with high oxygen requirement. He is on vanc an d Zosyn. After discussion with the patient and his daughter comfort care was selected, antibiotics w ere discontinued, the patient today, early in the morning, of hypoxic respiratory failure . /[id number]/MODL
== END 2017-05-25 10:07 | disposition expired | DRG 871 ==
LOC: OBSVTOIN 09:56 → F2N 13:15 → F3E 05-23 12:22 → F2N 05-23 20:08
PROVIDERS: ADMIT Hospitalist; ATTEND Hospitalist
DX: A41.9 Sepsis, unspecified organism (principal); R65.20 Severe sepsis without septic shock; J18.9 Pneumonia, unspecified organism; J44.1 Chronic obstructive pulmonary disease with (acute) exacerbation; J96.01 Acute respiratory failure with hypoxia; J44.0 Chronic obstructive pulmonary disease with (acute) lower respiratory infection; I50.33 Acute on chronic diastolic (congestive) heart failure; L03.116 Cellulitis of left lower limb; L03.113 Cellulitis of right upper limb; I11.0 Hypertensive heart disease with heart failure; Z51.5 Encounter for palliative care; G93.40 Encephalopathy, unspecified; Z99.81 Dependence on supplemental oxygen
CPT/HCPCS: 82947-QW; 85520-90; 96365; 97161-GP; 97167-GO; G8978-GP-CM; G8979-GP-CJ; G8987-GO-CM; G8988-GO-CK; J1170; J1644; J1650; J1940; J2060; J2543; J2930; J3370; Q9967